=== PATIENT | female | born 1990 | race Caucasian/White ===

== ENCOUNTER → 2018-05-13 | Outpatient (CLI) | payer OTHER | END | disposition home or self-care (01) | LOC: CFH 08:54 | PROVIDERS: ATTEND Internal Medicine Cardiovascular Disease | DX: I34.0 Nonrheumatic mitral (valve) insufficiency (principal); I35.1 Nonrheumatic aortic (valve) insufficiency | CPT/HCPCS: 93306 ==

== ENCOUNTER → 2018-08-13 | Outpatient (CLI) | payer OTHER ==
[~2018-08-13] VITALS: Ht 166.4 cm; Wt 97.7 kg
[2018-08-13 15:34] VITALS: BP 109/69
== END | disposition home or self-care (01) ==
LOC: LDOP 15:26
PROVIDERS: ATTEND Obstetrics & Gynecology Maternal & Fetal Medicine
DX: O36.8120 Decreased fetal movements, second trimester, not applicable or unspecified (principal); Z3A.27 27 weeks gestation of pregnancy
CPT/HCPCS: 59025; 99211; G0463

== ENCOUNTER 2018-10-16 11:23 | Outpatient (CLI) | payer OTHER ==
[~2018-10-16] VITALS: Ht 167.6 cm; Wt 105.9 kg
[2018-10-16 11:47] VITALS: BP 134/82
[2018-10-16] MEDS ORDERED: PREN1TAB60 PO (11:57)
[2018-10-16] MEDS ORDERED: LEVO200T5 PO (11:58)
[2018-10-16] MEDS ORDERED: CHOL100015 PO (12:00)
[2018-10-16 12:08] LABS: BASOPHILS # (AUTO) 0.01 x10^3/uL (0-0.1); BASOPHILS % (AUTO) 0 % (0-1); EOSINOPHILS # (AUTO) 0.05 x10^3/uL (0-0.4); EOSINOPHILS % (AUTO) 1 % (1-7); LYMPHOCYTES # (AUTO) 1.62 x10^3/uL (1-3.4); LYMPHOCYTES % (AUTO) 22 % (22-44); MD NO; MEAN CORPUSCULAR HEMOGLOBIN 29.1 pg (27.0-34.8); MEAN CORPUSCULAR HGB CONC 33.1 g/dL (32.4-35.8); MEAN CORPUSCULAR VOLUME 87.8 fL (80-100); MEAN PLATELET VOLUME 9.3 fL (7.4-10.4); MONOCYTES # (AUTO) 0.52 x10^3/uL (0.2-0.8); MONOCYTES % (AUTO) 7 % (2-9); NEUTROPHILS # (AUTO) 5.18 x10^3/uL (1.8-6.8); NEUTROPHILS % (AUTO) 70 % (42-75); PLATELET COUNT 243 x10^3/uL (130-400); RED BLOOD COUNT 4.53 x10^6/uL (3.82-5.3); RED CELL DISTRIBUTION WIDTH 13.8 % (9.6-15.2)
[2018-10-16 12:20] LABS: ALANINE AMINOTRANSFERASE 14 U/L (12-78); ALBUMIN 2.6 g/dL (3.4-5.0); ANION GAP 9 mmol/L (5-15); CALCIUM 8.7 mg/dL (8.5-10.1); CHLORIDE 107 mmol/L (98-107); CREATININE 0.54 mg/dL (0.55-1.02)
[2018-10-16 12:22] LABS: ALKALINE PHOSPHATASE 123 U/L (45-117); BILIRUBIN,TOTAL 0.3 mg/dL (0.2-1.0); TOTAL PROTEIN 6.9 g/dL (6.4-8.2)
[2018-10-16 12:33] LABS: MICROSCOPIC INDICATED
== END 2018-10-16 12:55 | disposition home or self-care (01) ==
LOC: LDOP 11:23
PROVIDERS: ATTEND Obstetrics & Gynecology Maternal & Fetal Medicine
DX: O13.3 Gestational [pregnancy-induced] hypertension without significant proteinuria, third trimester (principal); Z3A.36 36 weeks gestation of pregnancy
CPT/HCPCS: 36415; 59025; 80053; 81001; 82570; 84156; 84550; 85025; 99211; G0463

== ENCOUNTER → 2018-10-18 | Outpatient (CLI) | payer OTHER ==
[~2018-10-18] MED LIST: CHOL100015 PO; LEVO200T5 PO; PREN1TAB60 PO
== END | disposition home or self-care (01) ==
LOC: CFH 09:10
PROVIDERS: ATTEND Internal Medicine Cardiovascular Disease
DX: I35.1 Nonrheumatic aortic (valve) insufficiency (principal)
CPT/HCPCS: 93306

== ENCOUNTER 2018-11-05 16:10 | Inpatient (IN) | payer OTHER ==
[~2018-11-05] VITALS: Ht 165.1 cm; Wt 95.5 kg
[2018-11-05 16:37] LABS: BASOPHILS # (AUTO) 0.05 x10^3/uL (0-0.1); BASOPHILS % (AUTO) 1 % (0-1); EOSINOPHILS # (AUTO) 0.04 x10^3/uL (0-0.4); EOSINOPHILS % (AUTO) 1 % (1-7); LYMPHOCYTES # (AUTO) 1.83 x10^3/uL (1-3.4); LYMPHOCYTES % (AUTO) 23 % (22-44); MD NO; MEAN CORPUSCULAR HEMOGLOBIN 29.1 pg (27.0-34.8); MEAN CORPUSCULAR HGB CONC 33.6 g/dL (32.4-35.8); MEAN CORPUSCULAR VOLUME 86.8 fL (80-100); MEAN PLATELET VOLUME 9.3 fL (7.4-10.4); MONOCYTES # (AUTO) 0.64 x10^3/uL (0.2-0.8); MONOCYTES % (AUTO) 8 % (2-9); NEUTROPHILS # (AUTO) 5.48 x10^3/uL (1.8-6.8); NEUTROPHILS % (AUTO) 68 % (42-75); PLATELET COUNT 236 x10^3/uL (130-400); RED BLOOD COUNT 4.64 x10^6/uL (3.82-5.3); RED CELL DISTRIBUTION WIDTH 13.6 % (9.6-15.2)
[2018-11-05 16:42] VITALS: BP 141/95
[2018-11-05 16:49] LABS: ALANINE AMINOTRANSFERASE 15 U/L (12-78); ALBUMIN 2.8 g/dL (3.4-5.0); ANION GAP 9 mmol/L (5-15); CALCIUM 9.3 mg/dL (8.5-10.1); CHLORIDE 108 mmol/L (98-107); CREATININE 0.61 mg/dL (0.55-1.02)
[2018-11-05 16:50] LABS: BILIRUBIN, DIRECT < 0.1 mg/dL (0.1-0.2)
[2018-11-05 16:51] LABS: ALKALINE PHOSPHATASE 134 U/L (45-117); BILIRUBIN,TOTAL 0.3 mg/dL (0.2-1.0); TOTAL PROTEIN 6.9 g/dL (6.4-8.2)
[2018-11-05 17:03] LABS: MICROSCOPIC INDICATED
[2018-11-05] MEDS ORDERED: OXYTOCIN 30U/ 0.9% NaCL 500ML 500 ML IV ONE (17:42)
[2018-11-05] MEDS ORDERED: OXYTOCIN 30U/ 0.9% NaCL 500ML 500 ML IV PRN (17:42)
[2018-11-05] MEDS: D5%-LACTATED RINGERS 1,000 ML IV SCH (17:42)
[2018-11-05] MEDS ORDERED: FENTANYL PF 100 MCG/2ML IV PRN (18:00)
[2018-11-05] MEDS ORDERED: ONDANSETRON 2MG/ML, 2ML IVPush PRN (18:00)
[2018-11-05] MEDS: PLEASE ENTER WEIGHT MC SCH (18:00)
[2018-11-05] MEDS ORDERED: FENTANYL PF 100 MCG/2ML IVPush PRN (18:00)
[2018-11-05] MEDS ORDERED: CALCIUM CARBONATE 500 MG TAB.CHEW PO PRN (18:00)
[2018-11-05 19:10] VITALS: BP 141/93
[2018-11-05] MEDS ORDERED: NEWBORN KIT ONE (19:34)
[2018-11-05] MEDS ORDERED: MISOPROSTOL 25 MCG TABLET ONE ×2 (19:34→23:55)
[2018-11-05] MEDS ORDERED: LIDOCAINE 1%, 20ML ONE (19:35)
[2018-11-05] MEDS ORDERED: MISOPROSTOL 200 MCG TABLET ONE (19:35)
[2018-11-05] MEDS: MISOPROSTOL 25 MCG TABLET SL PRN ×2 (20:00→23:59)
[2018-11-05] MEDS: LACTATED RINGERS 1,000 ML IV SCH (20:59)
[2018-11-06] MEDS: D5%-LACTATED RINGERS 1,000 ML IV SCH ×2 (01:42→09:42)
[2018-11-06] MEDS: PLEASE ENTER WEIGHT MC SCH ×2 (02:00→10:00)
[2018-11-06] MEDS ORDERED: MISOPROSTOL 25 MCG TABLET ONE (03:54)
[2018-11-06 08:00] VITALS: BP 133/95
[2018-11-06] MEDS: LACTATED RINGERS 1,000 ML IV SCH ×3 (09:42→15:48)
[2018-11-06 13:00] VITALS: BP 135/93
[2018-11-06] MEDS ORDERED: ZOLPIDEM 10MG TABLET PO PRN (19:30)
[2018-11-06] MEDS ORDERED: ZOLPIDEM 5MG TABLET ONE (19:46)
[2018-11-06] MEDS ORDERED: ACETAMINOPHEN 325 MG TABLET ONE (23:48)
[2018-11-07] MEDS ORDERED: OXYTOCIN 30U/ 0.9% NaCL 500ML 500 ML ONE ×2 (00:23→17:23)
[2018-11-07] MEDS ORDERED: FENTANYL PF 100 MCG/2ML ONE ×2 (02:06→03:06)
[2018-11-07] MEDS ORDERED: FENTANYL/BUPIV./NS/PF 250 ML EPIDCONT SCH (02:41)
[2018-11-07] MEDS ORDERED: FENTANYL PF 500 MCG, BUPIVACAINE/PF 0.5%, 30ML 62.5 ML in SODIUM CHLORIDE 0.9% 177.5 ML EPIDCONT SCH (03:00)
[2018-11-07] MEDS ORDERED: BUPIVACAINE 0.25% ONE (03:06)
[2018-11-07] MEDS: LACTATED RINGERS 1,000 ML IV SCH ×4 (03:36→23:00)
[2018-11-07] MEDS: D5%-LACTATED RINGERS 1,000 ML IV SCH (04:00)
[2018-11-07 07:40] VITALS: BP 126/77
[2018-11-07] MEDS ORDERED: ONDANSETRON 2MG/ML, 2ML IV PRN (17:30)
[2018-11-07] MEDS ORDERED: MISOPROSTOL 200 MCG TABLET PR PRN (17:30)
[2018-11-07] MEDS ORDERED: CARBOPROST TROMETHAMINE 250 MCG/ML, 1ML IM PRN (17:30)
[2018-11-07] MEDS ORDERED: ACETAMINOPHEN 325 MG TABLET PO PRN ×2 (17:30)
[2018-11-07] MEDS ORDERED: RHOGAM FROM BLOOD BANK 1 NOTE EA IM/IV ONE (17:30)
[2018-11-07] MEDS ORDERED: DIPH,PERTUSS(ACELL),TET VAC/PF NC IM-VACC PRN (17:30)
[2018-11-07] MEDS ORDERED: OXYcodone/APAP 5/325MG TABLET PO PRN (17:30)
[2018-11-07] MEDS ORDERED: MEASLES,MUMPS&RUBELLA VACC/PF 0.5 ML SQ-VACC PRN (17:30)
[2018-11-07] MEDS ORDERED: IBUPROFEN 600 MG TABLET ONE (18:25)
[2018-11-07] MEDS ORDERED: OXYcodone/APAP 5/325MG TABLET ONE (18:26)
[2018-11-07] MEDS: OXYcodone/APAP 5/325MG TABLET PO PRN (18:30)
[2018-11-07] MEDS: IBUPROFEN 600 MG TABLET PO PRN (18:30)
[2018-11-07 19:50] VITALS: BP 127/80
[2018-11-08] MEDS: OXYTOCIN 30U/ 0.9% NaCL 500ML 500 ML IV SCH ×4 (00:18→23:29)
[2018-11-08 00:30] VITALS: BP 114/71
[2018-11-08] MEDS: IBUPROFEN 600 MG TABLET PO PRN ×4 (00:43→18:30)
[2018-11-08] MEDS: OXYcodone/APAP 5/325MG TABLET PO PRN ×4 (00:44→18:30)
[2018-11-08 00:59] LABS: BASOPHILS # (AUTO) 0.03 x10^3/uL (0-0.1); BASOPHILS % (AUTO) 0 % (0-1); EOSINOPHILS # (AUTO) 0.01 x10^3/uL (0-0.4); EOSINOPHILS % (AUTO) 0 % (1-7); LYMPHOCYTES % (AUTO) 12 % (22-44); MD NO; MEAN CORPUSCULAR HEMOGLOBIN 29.3 pg (27.0-34.8); MEAN CORPUSCULAR HGB CONC 33.9 g/dL (32.4-35.8); MEAN CORPUSCULAR VOLUME 86.4 fL (80-100); MEAN PLATELET VOLUME 9.4 fL (7.4-10.4); MONOCYTES # (AUTO) 1.28 x10^3/uL (0.2-0.8); MONOCYTES % (AUTO) 7 % (2-9); NEUTROPHILS # (AUTO) 14.23 x10^3/uL (1.8-6.8); NEUTROPHILS % (AUTO) 81 % (42-75); PLATELET COUNT 217 x10^3/uL (130-400); RED BLOOD COUNT 3.83 x10^6/uL (3.82-5.3); RED CELL DISTRIBUTION WIDTH 14.3 % (9.6-15.2)
[2018-11-08] MEDS ORDERED: LIDOCAINE/PF 1.5%-EPI 1:200K, 30ML ONE (03:10)
[2018-11-08 04:55] VITALS: BP 105/67
[2018-11-08] MEDS: LEVOTHYROXINE 200 MCG TABLET PO SCH (06:07)
[2018-11-08] MEDS: LACTATED RINGERS 1,000 ML IV SCH ×3 (07:00→23:00)
[2018-11-08 07:45] VITALS: BP 109/73
[2018-11-08] MEDS: DOCUSATE 100 MG CAPSULE PO PRN (08:15)
[2018-11-08] MEDS: PRENATAL VIT/IRON/FA 1 EACH TABLET PO SCH (08:15)
[2018-11-08 11:35] VITALS: BP 116/72
[2018-11-08 16:30] VITALS: BP 132/78
[2018-11-08 20:00] VITALS: BP 113/73
[2018-11-09] MEDS: OXYcodone/APAP 5/325MG TABLET PO PRN (01:52)
[2018-11-09] MEDS: IBUPROFEN 600 MG TABLET PO PRN ×2 (01:52→07:53)
[2018-11-09] MEDS: LEVOTHYROXINE 200 MCG TABLET PO SCH ×2 (06:00→06:27)
[2018-11-09] MEDS: LACTATED RINGERS 1,000 ML IV SCH (07:00)
[2018-11-09 07:45] VITALS: BP 125/84
[2018-11-09] MEDS: PRENATAL VIT/IRON/FA 1 EACH TABLET PO SCH (07:54)
[2018-11-09] MEDS: DOCUSATE 100 MG CAPSULE PO PRN (07:54)
[2018-11-09] MEDS ORDERED: OXYC-302 PO (08:02)
[2018-11-09] MEDS ORDERED: IBUP-1222 PO (08:02)
[2018-11-09] MEDS: OXYTOCIN 30U/ 0.9% NaCL 500ML 500 ML IV SCH (09:29)
== END 2018-11-09 13:12 | disposition home or self-care (01) | DRG 807 ==
LOC: LDOP 16:10 → LDIP 17:38 → 2NW 11-07 19:37
PROVIDERS: ADMIT Obstetrics & Gynecology Maternal & Fetal Medicine; ATTEND Obstetrics & Gynecology Maternal & Fetal Medicine
PROC: 10E0XZZ Delivery of Products of Conception, External Approach (ICD-10-PCS; principal; 2018-11-07)
PROC: 3E0R3BZ Introduction of Anesthetic Agent into Spinal Canal, Percutaneous Approach (ICD-10-PCS; 2018-11-07)
PROC: 00HU33Z Insertion of Infusion Device into Spinal Canal, Percutaneous Approach (ICD-10-PCS; 2018-11-07)
DX: O13.4 Gestational [pregnancy-induced] hypertension without significant proteinuria, complicating childbirth (principal); Z37.0 Single live birth; E20.9 Hypoparathyroidism, unspecified; O99.284 Endocrine, nutritional and metabolic diseases complicating childbirth; O69.81X0 Labor and delivery complicated by cord around neck, without compression, not applicable or unspecified; Z3A.39 39 weeks gestation of pregnancy; Z80.49 Family history of malignant neoplasm of other genital organs; Z82.3 Family history of stroke; Z88.8 Allergy status to other drugs, medicaments and biological substances
CPT/HCPCS: 36415; J7121; 80053; 81001; 82248; 82570; 82803; 84156; 84550; 85025; 86850; 86900; 90715; G0378; J3010; J3490; J2590; J7050; J7120

== ENCOUNTER → 2021-03-02 | Outpatient (CLI) | payer OTHER ==
[~2021-03-02] MED LIST changes: +IBUP-1222 PO; +OXYC1TAB14 PO
== END | disposition home or self-care (01) ==
LOC: CFH 14:49
PROVIDERS: ATTEND Internal Medicine Cardiovascular Disease
DX: I08.8 Other rheumatic multiple valve diseases (principal)
CPT/HCPCS: 93306

== ENCOUNTER 2021-05-06 00:18 | Inpatient (IN) | payer OTHER ==
[~2021-05-06] VITALS: Ht 165.1 cm; Wt 102.3 kg
[2021-05-06] MEDS ORDERED: CALCIUM CARBONATE 500 MG TAB.CHEW ONE (01:02)
[2021-05-06 01:30] VITALS: BP 124/79
[2021-05-06] MEDS ORDERED: MISOPROSTOL 25 MCG TABLET ONE (01:51)
[2021-05-06] MEDS ORDERED: TERBUTALINE 1 MG/ML, 1ML SQ PRN (02:00)
[2021-05-06] MEDS ORDERED: FENTANYL PF 100 MCG/2ML IV PRN (02:00)
[2021-05-06] MEDS ORDERED: FENTANYL PF 100 MCG/2ML IVPush PRN (02:00)
[2021-05-06] MEDS ORDERED: MISOPROSTOL 25 MCG TABLET VG PRN (02:00)
[2021-05-06] MEDS ORDERED: CALCIUM CARBONATE 500 MG TAB.CHEW PO PRN (02:00)
[2021-05-06] MEDS ORDERED: OXYTOCIN 30U/ 0.9% NaCL 500ML 500 ML IV ONE (02:00)
[2021-05-06] MEDS ORDERED: TERBUTALINE 1 MG/ML, 1ML IVPush PRN (02:00)
[2021-05-06] MEDS ORDERED: ONDANSETRON 2MG/ML, 2ML IVPush PRN (02:00)
[2021-05-06 02:17] LABS: BASOPHILS % (AUTO) 1 % (0-1); EOSINOPHILS % (AUTO) 1 % (1-7); LYMPHOCYTES % (AUTO) 32 % (22-44); MEAN CORPUSCULAR HEMOGLOBIN 31.4 pg (27.0-34.8); MEAN CORPUSCULAR HGB CONC 34.5 g/dL (32.4-35.8); MEAN PLATELET VOLUME 9.7 fL (7.4-10.4); MONOCYTES % (AUTO) 9 % (2-9); NEUTROPHILS % (AUTO) 58 % (42-75); PLATELET COUNT 185 x10^3/uL (130-400); RED CELL DISTRIBUTION WIDTH 14.3 % (9.6-15.2)
[2021-05-06] MEDS ORDERED: PLEASE ENTER HEIGHT AND WEIGHT MC SCH (02:30)
[2021-05-06] MEDS ORDERED: OXYTOCIN 30U/ 0.9% NaCL 500ML 500 ML ONE (07:30)
[2021-05-06] MEDS ORDERED: OXYTOCIN 30U/ 0.9% NaCL 500ML 500 ML IV PRN (07:30)
[2021-05-06] MEDS ORDERED: NEWBORN KIT ONE (07:30)
[2021-05-06] MEDS: LEVOTHYROXINE 200 MCG TABLET PO SCH (07:44)
[2021-05-06] MEDS: LACTATED RINGERS 1,000 ML IV SCH ×3 (09:46→14:57)
[2021-05-06] MEDS ORDERED: LIDOCAINE/PF 1.5% EPI 1:200K, 10 ML ONE (15:10)
[2021-05-06] MEDS ORDERED: FENTANYL/BUPIV./NS/PF 250 ML EPIDCONT ONE (15:10)
[2021-05-06] MEDS ORDERED: FENTANYL/BUPIV./NS/PF 250 ML EPIDCONT SCH (16:00)
[2021-05-06] MEDS ORDERED: LACTATED RINGERS 1,000 ML IV SCH (16:00)
[2021-05-06] MEDS ORDERED: EPHEDRINE 50 MG/ML, 1ML IVPush PRN (16:00)
[2021-05-06] MEDS ORDERED: LACTATED RINGERS 1,000 ML IVBOLUS PRN (16:00)
[2021-05-06] MEDS ORDERED: NALOXONE 0.4 MG/ML, 1ML IVPush PRN (16:00)
[2021-05-06] MEDS ORDERED: METHYLERGONOVINE 0.2 MG/ML IM PRN (18:00)
[2021-05-06] MEDS ORDERED: DIPH,PERTUSS(ACELL),TET VAC/PF NC IM-VACC PRN (18:00)
[2021-05-06] MEDS ORDERED: DOCUSATE 100 MG CAPSULE PO PRN (18:00)
[2021-05-06] MEDS ORDERED: OXYcodone/APAP 5/325MG TABLET PO PRN (18:00)
[2021-05-06] MEDS ORDERED: SIMETHICONE 80 MG CHEW TAB PO PRN (18:00)
[2021-05-06] MEDS ORDERED: MISOPROSTOL 200 MCG TABLET PR PRN (18:00)
[2021-05-06] MEDS ORDERED: ACETAMINOPHEN 325 MG TABLET PO PRN ×2 (18:00)
[2021-05-06] MEDS ORDERED: CARBOPROST TROMETHAMINE 250 MCG/ML, 1ML IM PRN (18:00)
[2021-05-06] MEDS: OXYTOCIN 30U/ 0.9% NaCL 500ML 500 ML IV SCH (18:30)
[2021-05-06 20:37] VITALS: BP 121/77
[2021-05-06] MEDS: IBUPROFEN 600 MG TABLET PO PRN (21:36)
[2021-05-07 00:35] VITALS: BP 119/79
[2021-05-07] MEDS: OXYcodone/APAP 5/325MG TABLET PO PRN ×2 (01:28→06:24)
[2021-05-07 02:02] LABS: BASOPHILS % (AUTO) 0 % (0-1); EOSINOPHILS % (AUTO) 0 % (1-7); LYMPHOCYTES % (AUTO) 20 % (22-44); MEAN CORPUSCULAR HEMOGLOBIN 31.5 pg (27.0-34.8); MEAN CORPUSCULAR HGB CONC 34.9 g/dL (32.4-35.8); MEAN PLATELET VOLUME 9.7 fL (7.4-10.4); MONOCYTES % (AUTO) 9 % (2-9); NEUTROPHILS % (AUTO) 70 % (42-75); PLATELET COUNT 149 x10^3/uL (130-400); RED BLOOD COUNT 3.89 x10^6/uL (3.82-5.3)
[2021-05-07] MEDS: OXYTOCIN 30U/ 0.9% NaCL 500ML 500 ML IV SCH ×2 (04:00→14:00)
[2021-05-07 04:15] VITALS: BP 105/70
[2021-05-07] MEDS: IBUPROFEN 600 MG TABLET PO PRN (06:24)
[2021-05-07 07:39] VITALS: BP 99/64
[2021-05-07] MEDS: LEVOTHYROXINE 200 MCG TABLET PO SCH (07:46)
[2021-05-07] MEDS ORDERED: PRENATAL VIT/IRON/FA 1 EACH TABLET PO SCH (09:00)
[2021-05-07 12:15] VITALS: BP 108/71
[2021-05-07 16:10] VITALS: BP 119/74
== END 2021-05-07 18:50 | disposition home or self-care (01) | DRG 807 ==
LOC: LDIP 00:18 → 2NW 20:02
PROVIDERS: ADMIT Obstetrics & Gynecology Maternal & Fetal Medicine; ATTEND Obstetrics & Gynecology Maternal & Fetal Medicine
PROC: 10E0XZZ Delivery of Products of Conception, External Approach (ICD-10-PCS; principal; 2021-05-06)
PROC: 3E0P7VZ Introduction of Hormone into Female Reproductive, Via Natural or Artificial Opening (ICD-10-PCS; 2021-05-06)
DX: O71.4 Obstetric high vaginal laceration alone (principal); Z37.0 Single live birth; Z3A.39 39 weeks gestation of pregnancy; Z20.822 Contact with and (suspected) exposure to COVID-19
CPT/HCPCS: 36415; 85025; 86592; 86850; 86900; 87635; G0378; J3010; J2590; J7120